=== PATIENT | male | born 2000 | race Caucasian/White ===

== ENCOUNTER 2022-02-19 11:33 | Emergency (ER) | payer BC, SELFPAY ==
[2022-02-19 12:06] VITALS: BP 136/64; PULSE 71; RESP 18; TEMP 36.5; O2SAT 100
--- NOTE | 2022-02-19 12:59 | ED.URI ---
HPI - URI/Sore Throat General Chief Complaint: Upper Respiratory Infection Stated Complaint: runny nose,cough Time Seen by Provider: 02/19/22 12:55 Source: patient and RN notes reviewed Mode of arrival: ambulatory Limitations: no limitations History of Present Illness HPI Narrative: 21-year-old presenting for complaint of sinus congestion and drainage and nonproductive cough For 3 weeks, and sore throat over the last 2 days. he started taking DayQuil and NyQuil for symptoms. He denies shortness of breath, wheezing, nausea, vomiting, diarrhea, fevers or chills. Denies sick contacts. MD elicited complaint: cough Related Data Allergies Allergy/AdvReac Type Severity Reaction Status Date / Time No Known Allergies Allergy Verified 02/19/22 12:12 Review of Systems Review of Systems: CONSTITUTIONAL: denies malaise, chills, sweats, fever EYES: Denies visual changes, redness, or discharge ENT: Reports rhinorrhea, congestion, sore throat CARDIOVASCULAR: Denies chest pain, palpitations, edema RESPIRATORY: Reports cough, post nasal drainage. Denies dyspnea GASTROINTESTINAL: Denies abdominal pain, nausea, vomiting, diarrhea SKIN: Denies rash or itching MUSCULOSKELETAL: denies myalgia NEUROLOGIC: Denies headache Exam Narrative: GENERAL: well-appearing EYES: PERRLA, conjunctivae clear ENT: Mucous membranes moist. TMs pearly melendez with dull light reflex bilaterally; no tragal tenderness. Oropharynx erythematous without lesions or exudate, no drooling, no hoarseness, no trismus, uvula midline. CHEST: Clear to auscultation, breath sounds equal. HEART: Regular rate and rhythm. No murmur heard. SKIN: Warm, dry, no rash. NEURO: Alert and oriented x3. PSYCH: Normal mood and affect Course Course Emergency Course: Patient is aware of diagnosis, understands and agrees to treatment plan. Anticipatory guidance given. Patient agrees to follow-up as directed and is aware of reasons to seek care at the emergency department. Portions of this record may have been created with voice recognition software Level of Care: Express Care Visit Vital Signs Vital signs: Vital Signs Temperature 97.7 F 02/19/22 12:06 Pulse Rate 71 02/19/22 12:06 Respiratory Rate 18 02/19/22 12:06 Blood Pressure 136/64 02/19/22 12:06 Pulse Oximetry 100 02/19/22 12:06 Oxygen Delivery Room Air 02/19/22 12:06 Temperature 97.7 F 02/19/22 12:06 Pulse Rate 71 02/19/22 12:06 Respiratory Rate 18 02/19/22 12:06 Blood Pressure 136/64 02/19/22 12:06 Pulse Oximetry 100 02/19/22 12:06 Oxygen Delivery Room Air 02/19/22 12:06 reviewed MDM - URI/Sore Throat MDM Narrative Medical decision making narrative: Advised supportive measures and signs/symptoms to go to the ER. Pt is appropriate for outpt treatment and f/u. Differential Diagnosis Differential diagnosis: Likely upper respiratory infection, sinusitis and viral infection Discharge Plan Discharge Clinical Impression: Upper respiratory infection Patient Disposition: Home, Self-Care Condition: Stable Instructions: Upper Respiratory Infection (ED) Additional Instructions: Recommend Flonase spray and Zyrtec (or Claritin/Dianna) over the counter Cough syrup may cause drowsiness; avoid driving or take it at night time. Tylenol 1000mg every 8 hours as needed for pain Symptomatic treatment includes: rest, fluids, and increase humidity of the air at home. If no improvement with the above measures, or symptoms worsen in the next 3 days, you can start the antibiotic Follow up with your primary care provider in 1 week. Go to the ER for worsening symptoms or concerns. Prescriptions: New amoxicillin-pot clavulanate 875-125 mg tablet 1 tablet PO Q12H 7 Days Qty: 14 0RF fluticasone propionate [Flonase Allergy Relief] 50 mcg/actuation spray,suspension 2 spray intranasal DAILY PRN (Reason: allergy symptoms) Qty: 16 0RF Rx Instructions: administer
== END 2022-02-19 13:12 | disposition home or self-care (01) ==
PROVIDERS: Emergency Provider Nurse Practitioner Family
DX: J06.9 Acute upper respiratory infection, unspecified (principal)
CPT/HCPCS: 99213; G0463

== ENCOUNTER 2024-01-07 09:36 | Emergency (ER) | payer BC, SELFPAY ==
--- NOTE | ~2024-01-07 | XR_ITS ---
Exam: Abdomen 2V HISTORY: LLQ abdomen pain r/o constipation COMPARISON: None. TECHNIQUE: Supine images of the abdomen and pelvis. FINDINGS: Trace fecal stasis within the ascending and proximal descending colon. Mural thickening is suspected within the sigmoid colon. Remaining bowel gas pattern is unremarkable without air opacification or dilatation of small bowel. There is no free air or deep sulci. No pathologic calcifications are seen. Lung bases are unremarkable. Bones and soft tissues are unremarkable. IMPRESSION: Nonobstructive bowel gas pattern. A small amount of fecal stasis is present, but not significant enough to suggest severe constipation, as detailed above. Reviewed, dictated and finalized at location A. IMPRESSION: Nonobstructive bowel gas pattern. A small amount of fecal stasis is present, but not significant enough to sugges t severe constipation, as detailed above.
--- NOTE | 2024-01-07 09:45 | ED.ABDPAIN ---
HPI - Abdominal Pain General Chief Complaint: Abdominal Pain Stated Complaint: Stomach Pain Time Seen by Provider: 01/07/24 09:44 Source: patient Mode of arrival: ambulatory Limitations: no limitations History of Present Illness HPI narrative: Aden is a 23-year-old male patient presenting to the clinic today with complaints of left lower quadrant abdominal pain started on Saturday. He reports the pain comes and goes and is sharp in nature. Rates pain currently a 4/10 but on Saturday was 10/10. Last bowel movement was yesterday and normal for the patient. He denies any blood in stool. Eating or drinking does not alter the pain. Denies any associated nausea or vomiting but does feel a bloating/tightness in his abdomen. He states he has not really been passing gas. Denies any abdominal surgeries. No history of diverticulitis, constipation, or IBS. No fever, chills, body aches, or urinary symptoms Related Data Home Medications Medication Instructions Recorded Confirmed No Home Medications 01/07/24 01/07/24 Allergies Allergy/AdvReac Type Severity Reaction Status Date / Time No Known Allergies Allergy Verified 01/07/24 09:52 Review of Systems Review of Systems: Pertinent positives per HPI. Patient denies any fever, chills, rash, headache, visual changes, dizziness, cough, runny nose, sore throat, shortness of breath, chest pain, palpitations, nausea, vomiting, diarrhea, constipation, or any urinary issues. PMFSH Comments At the time of my signature, I reviewed and agree with the nursing past medical, surgical, social, and family history. There is no relevant family history pertinent to the patient complaint. Exam Narrative: General: Well-developed, well nourished, in no apparent distress. Head: Normocephalic, atraumatic. Cardio: Regular rate and rhythm, s1 and s2 normal, no murmur appreciated. Resp: Clear to auscultation bilaterally, no rhonchi, rales, wheezing or rubs. Abdomen: Soft, pliable, bowel sounds present in all quadrants, tender to palpation over the left lower quadrant, no organomegly, no CVAT tenderness. Course Course Emergency Course: Portions of this record may have been created with voice recognition software. Level of Care: Express Care Visit Vital Signs Vital signs: Vital signs reviewed MDM - Abdominal Pain MDM Narrative Medical decision making narrative: At the time of visit patient is resting comfortably on the exam table. Patient appears to be nontoxic. Diagnostics: KUB was performed and shows fecal stasis in the ascending and proximal descending colon with mural thickening of the sigmoid colon Plan: Recommend transfer to the ER for further evaluation to obtain blood work and possible CT scan if needed. Patient would like to go to [facility] in [place], [place]. Spoke with Dr. Calvert and he accepts patient for transfer. Differential Diagnosis Differential diagnosis: Likely abdominal pain, acute appendicitis, calculus of kidney, constipation, diverticulitis, gastroenteritis, pancreatitis and small bowel obstruction Imaging Data Radiologist's impression: ITS Impressions Abdomen X-Ray 01/07/24 10:17 IMPRESSION: Nonobstructive bowel gas pattern. A small amount of fecal stasis is present, but not significant enough to suggest severe constipation, as detailed above. Discharge Plan Discharge Clinical Impression: Abdominal pain, acute, left lower quadrant Patient Disposition: Acute Care Hospital Condition: Stable Instructions: Antibiotic Form Prescriptions: No Action No Home Medications Follow-up/Referrals: UNKNOWN,DOCTOR [Non-Staff] - Time of Disposition: 10:50 Quality NIHSS Nursing Documentation ED NIHSS nursing documentation: reviewed/agree
[2024-01-07 09:55] VITALS: BP 135/83; PULSE 69; RESP 16; TEMP 36.4; O2SAT 100
== END 2024-01-07 10:42 | disposition short-term general hospital (02) ==
PROVIDERS: Emergency Provider Nurse Practitioner Family
DX: R10.32 Left lower quadrant pain (principal); Z86.16 Personal history of COVID-19
CPT/HCPCS: 74018; 99213; G0463